=== PATIENT | female | born 1965 | race Caucasian/White ===

== ENCOUNTER → 2023-04-17 09:05 | Outpatient (REF) | payer BC, SELFPAY | LOC: WDC 09:05 | PROVIDERS: ATTENDING PHYSICIAN Surgery | DX: C50.412 Malignant neoplasm of upper-outer quadrant of left female breast (principal) | CPT/HCPCS: 19285; 38792; 76942; 77065; A4648; A9541 ==

== ENCOUNTER → 2023-04-18 07:56 | Outpatient (REF) | payer BC, SELFPAY | LOC: WDC 07:56 | PROVIDERS: ATTENDING PHYSICIAN Surgery | DX: C50.412 Malignant neoplasm of upper-outer quadrant of left female breast (principal) | CPT/HCPCS: 88305; 88307; 88332; 76098; 88331; 88342 ==

== ENCOUNTER → 2023-05-04 13:13 | Outpatient (REF) | payer BC, SELFPAY | LOC: WDC 13:13 | PROVIDERS: ATTENDING PHYSICIAN Surgery | DX: M79.89 Other specified soft tissue disorders (principal) | CPT/HCPCS: 76642 ==

== ENCOUNTER → 2023-05-11 09:18 | Outpatient (REF) | payer BC, SELFPAY | LOC: RCS 09:18 | PROVIDERS: ATTENDING PHYSICIAN Internal Medicine; FAMILY PHYSICIAN Family Medicine; REFERRING PHYSICIAN Internal Medicine Hematology & Oncology | DX: I42.8 Other cardiomyopathies (principal); Z17.1 Estrogen receptor negative status [ER-]; C50.912 Malignant neoplasm of unspecified site of left female breast | CPT/HCPCS: 93306; 93356 ==

== ENCOUNTER 2023-05-24 09:30 | Emergency (ER) | payer BC, SELFPAY ==
[2023-05-24] VITALS (7 sets, daily range): BP systolic 98–118; BP diastolic 53–62; PULSE 77–85; BMI 22.5
[2023-05-24 09:41] LABS: Glucose - Point of Care 137 mg/dl (70-99)
--- NOTE | 2023-05-24 09:52 | ED.GENMED ---
History of Present Illness
General
Chief Complaint: Fainting/Passed Out
Source: patient
Exam Limitations: none
Time Seen by Provider: 05/24/23 09:33
Nursing documentation reviewed up to this point in time: agreed with
Travel History
Have you had any contact with someone who has COVID-19?: No
Do you have any symptoms of coronavirus? Fever > 100 degrees, chills, cough, shortness of breath, sore throat, loss of taste or smell, muscle aches, or headache?: No
History of Present Illness
History of Present Illness:
pt is a 58 y/o F with h/o breast CA s/p completion of chemo and was due to start another regimen of maintenance chemo and radiation soon
cardiomopathy, h/o EF 30% but back up to 50% in apr
seizure in august, on keppra
here after witnessed syncope event just [employer]
pt ate breakfast, felt well; says she had a little sore throat and a cough when she woke up
and [facility] she [facility] have her first infusion for her maintenance chemo and after her port was accessed and her blood was drawn, she felt warm, nauseated, and lightheaded. told her she thought she was doug to pass
out and then eyes rolled back and she slumped, they leaned her back in her upright chair and pt had her fists clenched and was gently shaking
woke up shortly after without any confusion, no tongue biting and no incontinence
she did vomit after waking up
pt says she feels fine now
no cp, sob, headache, fever, leg swelling,
Past History
Past History
ED Past Medical History: Psychiatric, Other (Early differential) and Other (DVT of her uterus)
ED Past Surgical History: Other (Tubal)
Social History
Tobacco: Smoker
Alcohol: None
Drug: None
Personal:
Living: with family
Review of Systems
Review of Systems
Allergies reviewed?: Yes
All Other Systems: Not applicable
Phy Exam
Physical Exam
Physical Exam:
GENERAL: Alert , in no apparent distress, temp 99
EYE: pupils equal and reactive , pale
NECK: Supple
ENT: o/p clr, mmm.
CARDIAC: Regular rate and rhythm .no edema
chest wall: port upper right;
LUNGS: Clear breath sounds bilaterally, no acute respiratory distress, no wheezes/rales/rhonchi
ABDOMEN: Soft, without focal tenderness, no r/g, no cvat, normal bowel sounds
NEUROLOGICAL: Alert and oriented, no focal neuro deficits
SKIN: Warm and dry, skin intact. pale
MUSCULOSKELETAL: No edema, well perfused. neg sarah's sign
PSYCH: Normal and appropriate interaction.
Course
Orders/Labs/Results
Orders:
Orders
05/24/23 09:34
Electrocardiogram (*1) Urgent
Reason for Study: Chest Pain
Cardiac Monitoring- Treatment ONCE
EKG- Treatment ONCE
05/24/23 09:36
Accucheck Once [Bedside Glucose Monitoring-ONCE] As Directed
05/24/23 09:45
Type+Screen Urgent
Complete Blood Count/With Diff Urgent
Comprehensive Metabolic Panel Urgent
Troponin I Urgent
05/24/23 09:49
Orthostatic VS- Treatment ONCE
0.9% Sodium Chloride 500 ml [Nss] 500 ml IV BOLUS
CR Chest - 2 Views Urgent
Comment:
Reason For Exam: syncop, cough
05/24/23 09:59
COVID-19 Antigen Urgent
Source: Nasal Swab
Influenza A+B Rapid Molecular Urgent
ALBERTO Source: Nasal Swab
Specimen Description:
05/24/23 12:25
Heparin Pf [Heparin Lock Flush] 500 unit .ROUTE .[facility]
Abnormal Lab Results
0305/24/23 05/24/23
09:39 09:45 09:59
RBC 3.74 L 10^6/uL
(4.20-5.40)
Hgb 11.3 L g/dL
(12.0-16.0)
Hct 34.0 L %
(37.0-47.0)
Absolute Monos (auto) 0.8 H 10^3/uL
(0.1-0.6)
Monocytes % 13.8 H %
(1.7-9.3)
Glucose 145 H mg/dl
(70-99)
SARS-CoV-2 Antigen Positive A
(Negative)
POC Glucose 137 H mg/dl
(70-99)
05/24/23 09:45
05/24/23 09:45
Vital Signs
Initial and Last Documented VS:
Initial Vital Signs
Pulse Resp Pulse Ox
80 24 97
05/24/23 09:36 05/24/23 09:36 05/24/23 09:36
Last Documented Vital Signs
Temp Pulse Resp BP Pulse Ox
99.5 F 70 20 109/61 97
05/24/23 09:42 05/24/23 12:15 05/24/23 12:15 05/24/23 12:00 05/24/23 12:15
MDM/Problems Addressed
Differential Diagnosis Includes:
vasovagal syncope, fever, infection, pneumonia, dehydration
MDM/Problems Addressed:
58-year-old female with a history of breast cancer in remission but due to start an infusion therapy but she syncopized after her port was accessed
felt presyncopal symptoms nausea, warm, lightheaded
woke up without any confusion no post ictal stsate and then vomited
now feels better
slight cough this am
low grade temp
otherwise unremarkable exam
ekg nsr
pt has clear lungs on cxr
covid pos
likely the cause of her low grade temp,, nausea, cough today
she feels better after fluids
would like to go home
d/w e attending who agreed
*Critical Care Note
Total Time (30-74mins, 75-104mins- exclusive of procedures): Not Applicable
ED Attending Note
-
Portions of this chart may have been created with voice recognition software.� Occasional wrong word or��sound alike� substitutions may have occurred due to the inherent limitations of voice recognition software.
Discharge Plan
Departure
Patient Disposition: Home (Routine Discharge)
Date of Disposition: 05/24/23
Time of Disposition: 12:21
Patient with high blood pressure during this ER visit?: No
Covid-19: Confirmed COVID-19
Discharge Problem:
Syncope, vasovagal, COVID-19
Instructions: Syncope (Fainting) (DC), COVID-19 (DC)
Prescriptions:
No Action
carvedilol [Coreg] 12.5 mg Tablet
12.5 mg PO BID
spironolactone 25 mg Tablet
25 mg PO DAILY
amitriptyline 10 mg Tablet
10 mg PO HS PRN (Reason: insomnia)
Jardiance 10 mg Tablet
10 mg PO DAILY
Entresto 49-51 mg Tablet
1 tab PO BID
loperamide [Imodium] 2 mg Capsule
2 mg PO UD PRN (Reason: diarrhea)
Patient Comments:
03/15/2023, patient states that she is allowed to take up to 8 capsules a day as needed for diarrhea.
levetiracetam 500 mg Tablet
500 mg PO Q12H
acetaminophen [Tylenol Extra Strength] 500 mg Tablet
1,000 mg PO DAILYPRN PRN (Reason: chemo treatment)
pantoprazole 40 mg Tablet,Delayed Release (Dr/Ec)
40 mg PO DAILY
dextroamphetamine-amphetamine 20 mg Tablet
20 mg PO TID
Patient Comments:
03/15/2023, patient filled this medication on 02/19/2023 for 90 tablets according to PDMP.
fluticasone propionate 50 mcg/actuation [place],Suspension
1 spray INTRANASAL BID
omeprazole magnesium [Prilosec OTC] 20 mg Tablet,Delayed Release (Dr/Ec)
20 mg PO DAILY
magnesium 250 mg tablet
250 mg PO DAILY Qty: 20 0RF
Referrals:
Ricardo River MD [Family Provider] - Follow up in 5-7 days
Activity Restrictions/Additional Instructions:
YOU TESTED POSITIVE FOR COVID
YOU SOUND TO HAVE PASSED OUT WHICH WAS LIKEY VASOVAGAL AFTER YOUR PORT WAS ACCESSED OR BECAUSE YOU WERE NAUSEATED.
YOU CAN TRY TYLENOL FOR YOUR FEVER/SACHES
DRINK FLUIDS TOLERATED
REST
STAY HOME FOR 5 DAYS
RETURN FOR: REPEATED PASSING OUT, CHEST PAIN, SEVERE HEADACHE, HIGH FEVER NOT RESPONDING TL TYLENOL, SEVERE DEHYDRATION, CONFUSION OR ANY CONCENRS.
Interventions
Interventions:
*Risk Screen - Suicide Last Done: 05/24/23 09:49
*General Assessment Last Done: 05/24/23 09:49
*Neglect/Abuse Screening Last Done: 05/24/23 09:49
ED- Fall Risk Assessment Last Done: 05/24/23 09:49
*ED COVID-19 Vaccine History Last Done: 05/24/23 09:49
*Nursing Disposition Last Done: 05/24/23 12:55
ED- Cardiac Assessment Last Done: 05/24/23 10:16
ED- Neurological Assessment Last Done: 05/24/23 10:16
Discharge Date and Time
Discharge Date/Time: 05/24/23 12:55
[2023-05-24 10:02] LABS: % Basophils 0.7 % (0-2); % Eosinophils 3.8 % (0-6); % Immature Granulocytes 0.3 % (0-0.5); % Lymphocytes 22.4 % (20.5-51.1); % Monocytes 13.8 % (1.7-9.3); Absolute Eosinophils 0.2 10^3/uL (0-0.7); Absolute Lymphocytes 1.4 10^3/uL (1.2-3.4); Absolute Monocytes 0.8 10^3/uL (0.1-0.6); Absolute Neutrophils 3.6 10^3/uL (1.4-6.5); Hemoglobin 11.3 g/dL (12.0-16.0); Mean Corp Hgb Conc. 33.2 g/dL (33.0-37.0); Mean Corpuscular Hgb 30.2 pg (27.0-31.0); Mean Corpuscular Volume 90.9 fL (81.0-99.0); Mean Platelet Volume 9.4 fL (7.4-10.4); Nucleated Red Blood Cells % 0 %; Platelet Count 203 10^3/uL (130-400); Red Blood Cell Count 3.74 10^6/uL (4.20-5.40); Red Cell Dist. Width 13.6 % (11.5-14.5)
[2023-05-24] MEDS: NSS 500 IV (10:05)
[2023-05-24 10:13] LABS: ALT (SGPT) 17 U/L (0-35); AST (SGOT) 24 U/L (14-36); Albumin 3.6 g/dl (3.5-5.0); Alkaline Phosphatase 68 U/L (38-126); Blood Urea Nitrogen 14 mg/dl (7-17); Calcium 9.1 mg/dl (8.4-10.2); Carbon Dioxide 28 mmol/L (22-30); Chloride 100 mmol/L (98-107); Estimated Creatinine Clearance 102 ml/min; Glucose 145 mg/dl (70-99); Potassium 3.8 mmol/L (3.5-5.1); Sodium 137 mmol/L (135-145); Total Bilirubin 0.3 mg/dl (0.2-1.3); Total Protein 6.4 g/dl (6.3-8.2); eGFR > 60.00
[2023-05-24 10:18] LABS: COVID-19 Antigen Positive (Negative)
[2023-05-24 10:24] LABS: Troponin I < 0.012 ng/ml
--- NOTE | 2023-05-24 13:03 | EDRN ---
Port flushed w/ 10 mL of NSS and then w/ 500 units of heparin in 5mL. Pt is awaiting to have port de-accessed.
== END 2023-05-24 12:55 | disposition home or self-care (01) ==
LOC: EMR 09:30
PROVIDERS: Physician Assistant; EMERGENCY PHYSICIAN Emergency Medicine; FAMILY PHYSICIAN Family Medicine
DX: U07.1 COVID-19 (principal); R55 Syncope and collapse; F17.200 Nicotine dependence, unspecified, uncomplicated; Z85.3 Personal history of malignant neoplasm of breast; Z11.52 Encounter for screening for COVID-19
CPT/HCPCS: 99285; 96360; 71046; 80053; 82962; 84484; 85025; 86850; 86900; 86901; 87502; 87811; 93005

== ENCOUNTER → 2023-08-25 10:21 | Outpatient (REF) | payer BC, SELFPAY | LOC: RCS 10:21 | PROVIDERS: ATTENDING PHYSICIAN Internal Medicine; FAMILY PHYSICIAN Family Medicine; REFERRING PHYSICIAN Internal Medicine Hematology & Oncology | DX: I42.8 Other cardiomyopathies (principal); Z17.1 Estrogen receptor negative status [ER-]; C50.912 Malignant neoplasm of unspecified site of left female breast | CPT/HCPCS: 93306; 93356 ==

== ENCOUNTER → 2023-10-04 11:16 | Outpatient (REF) | payer BC, SELFPAY | LOC: HWRAD 11:16 | PROVIDERS: ATTENDING PHYSICIAN Internal Medicine Hematology & Oncology; FAMILY PHYSICIAN Family Medicine; REFERRING PHYSICIAN Surgery | DX: C50.912 Malignant neoplasm of unspecified site of left female breast (principal); Z12.31 Encounter for screening mammogram for malignant neoplasm of breast | CPT/HCPCS: 70496; 77063; 77067; Q9967 ==

== ENCOUNTER → 2023-11-14 09:34 | Outpatient (REF) | payer BC, SELFPAY | LOC: RCS 09:34 | PROVIDERS: ATTENDING PHYSICIAN Internal Medicine; FAMILY PHYSICIAN Family Medicine | DX: I42.8 Other cardiomyopathies (principal); Z17.1 Estrogen receptor negative status [ER-]; C50.912 Malignant neoplasm of unspecified site of left female breast | CPT/HCPCS: 93306; 93356 ==

== ENCOUNTER 2024-03-15 05:43 | Day surgery (SDC) | payer BC, SELFPAY ==
[2024-03-01 11:37] LABS: Hematocrit 41.3 % (37.0-47.0); Hemoglobin 13.7 g/dL (12.0-16.0); Mean Corp Hgb Conc. 33.2 g/dL (33.0-37.0); Mean Corpuscular Hgb 31.1 pg (27.0-31.0); Mean Corpuscular Volume 93.7 fL (81.0-99.0); Platelet Count 216 10^3/uL (130-400); Red Blood Cell Count 4.41 10^6/uL (4.20-5.40); Red Cell Dist. Width 12.6 % (11.5-14.5); White Blood Cell Count 8.4 10^3/uL (4.8-10.8)
[2024-03-01 12:07] LABS: ALT (SGPT) 16 U/L (0-35); AST (SGOT) 24 U/L (14-36); Albumin 4.6 g/dl (3.5-5.0); Alkaline Phosphatase 97 U/L (38-126); Blood Urea Nitrogen 16 mg/dl (7-17); Calcium 9.7 mg/dl (8.4-10.2); Carbon Dioxide 30 mmol/L (22-30); Chloride 96 mmol/L (98-107); Glucose 122 mg/dl (70-99); Potassium 4.8 mmol/L (3.5-5.1); Sodium 136 mmol/L (135-145); Total Bilirubin 0.5 mg/dl (0.2-1.3); Total Protein 7.4 g/dl (6.3-8.2); eGFR > 60.00
[2024-03-01 12:13] LABS: Prealbumin (Transthyretin) 25.3 mg/dl (17.6-36.0)
[2024-03-01 12:22] LABS: Vitamin D, 25-OH*** 15.1 ng/mL (30-80)
[2024-03-01 13:12] VITALS: BMI 22.7
[2024-03-15] VITALS (8 sets, daily range): BP systolic 85–127; BP diastolic 40–61; BMI 22.7
[2024-03-15] MEDS: LOVENOX 40 MG SC (07:09)
[2024-03-15] MEDS: TYLENOL 1000 MG PO (07:09)
[2024-03-15] MEDS: NORMOSOL-R/PLASMALYTE-A 1000 IV (07:21)
--- NOTE | 2024-03-15 08:13 | W.IMMPOSTOP ---
Surgical Immed Post Op Note
-
Primary Surgeon: Sujata
Assisting Surgeon: None
Pre-op Diagnosis: Left breast ca
Post-op Diagnosis: Same
Procedure Performed: Removal right port
Anesthesia Type: TIVA
Specimen / Cultures: None
Estimated Blood Loss: 2cc
Complications: None
Operative Findings: None
--- NOTE | 2024-03-15 08:14 | OR.RPT ---
Operative Report
Operative Report
Pre-op diagnosis: left breast carcinoma
postop diagnosis: left breast carcinoma
procedure: removal of right port
Surgeon: Sujata
anesthesia: TIVA
EBL: 2 cc
Complications: none
The patient is a 59-year-old female who had undergone surgery for left breast carcinoma and presents now for port removal after adjuvant chemotherapy treatment.
The patient presented to the same-day surgical unit where she verified site and procedure. DVT and antibiotic prophylaxis were provided. The patient was taken to the operating room and in the supine position. intravenous sedation was delivered.
The right upper chest and neck were prepped and draped in the usual sterile fashion. Appropriate timeout was performed. Tissues were anesthetized with 1% lidocaine plain and the previous insertion site was entered sharply with the blade.
Dissection was carried down to the port pocket using the cautery and the port extruded easily. Catheter tip was intact. The vascular tract was suture-ligated with 3-0 silk suture ligature. Hemostasis was maintained with the cautery and Marcaine
0.5% plain was instilled into all tissues. Wound was closed using simple and erupted 3-0 plain on subcutaneous tissue and running subcuticular 4-0 Monocryl on skin. Surgical glue and a sterile compressive dressing were applied. All sponge needle
and instrument counts were correct and the patient was transferred to the recovery room in stable condition.
([id number])
== END 2024-03-15 09:32 | disposition home or self-care (01) ==
LOC: SDS 05:43
PROVIDERS: ATTENDING PHYSICIAN Surgery; FAMILY PHYSICIAN Family Medicine
DX: C50.912 Malignant neoplasm of unspecified site of left female breast (principal); Z92.21 Personal history of antineoplastic chemotherapy; Z45.2 Encounter for adjustment and management of vascular access device
CPT/HCPCS: 36590; 36415; 80053; 82306; 84134; 85027

== ENCOUNTER → 2024-03-26 12:49 | Outpatient (REF) | payer BC, SELFPAY | LOC: RCS 12:49 | PROVIDERS: ATTENDING PHYSICIAN Internal Medicine; FAMILY PHYSICIAN Family Medicine; REFERRING PHYSICIAN Internal Medicine Cardiovascular Disease | DX: I42.8 Other cardiomyopathies (principal); Z17.1 Estrogen receptor negative status [ER-]; C50.912 Malignant neoplasm of unspecified site of left female breast | CPT/HCPCS: 93306; 93356 ==

== ENCOUNTER → 2024-04-30 13:47 | Outpatient (REF) | payer BC, SELFPAY | LOC: HWRAD 13:47 | PROVIDERS: ATTENDING PHYSICIAN Internal Medicine Critical Care Medicine; FAMILY PHYSICIAN Family Medicine; REFERRING PHYSICIAN Internal Medicine Hematology & Oncology | DX: R91.1 Solitary pulmonary nodule (principal) | CPT/HCPCS: 71250 ==

== ENCOUNTER 2024-05-13 06:20 | Day surgery (SDC) | payer BC, SELFPAY ==
[2024-05-09 13:56] LABS: APTT 27.3 Sec (23.4-35.0); INR 0.85; PT 12.1 Sec (11.4-14.6)
[2024-05-09 14:14] VITALS: BMI 23.3
--- NOTE | 2024-05-09 16:41 | PTCARENOTE ---
Dr Abreu made aware of abnormal EKG, no further action requested.
[2024-05-13 07:16] VITALS: BMI 23.4
[2024-05-13 07:17] VITALS: BP 131/71
[2024-05-13 07:18] LABS: Glucose - Point of Care 107 mg/dl (70-99)
[2024-05-13 09:48] VITALS: BP 123/55; BP 131/71
[2024-05-13 10:00] VITALS: BP 118/66
[2024-05-13 10:15] VITALS: BP 119/65
[2024-05-13 10:25] VITALS: BP 126/65
[2024-05-13 10:45] VITALS: BP 116/71
== END 2024-05-13 11:06 | disposition home or self-care (01) ==
LOC: SDS 06:20
PROVIDERS: ATTENDING PHYSICIAN Internal Medicine Critical Care Medicine; FAMILY PHYSICIAN Family Medicine
DX: J84.09 Other alveolar and parieto-alveolar conditions (principal); R91.1 Solitary pulmonary nodule; R94.2 Abnormal results of pulmonary function studies; R93.89 Abnormal findings on diagnostic imaging of other specified body structures; I47.10 Supraventricular tachycardia, unspecified; I50.33 Acute on chronic diastolic (congestive) heart failure; I11.0 Hypertensive heart disease with heart failure; R56.9 Unspecified convulsions; Z85.3 Personal history of malignant neoplasm of breast; Z87.891 Personal history of nicotine dependence
CPT/HCPCS: 31629; 31628; 31624; 31627; 31623; 31652; 31654; 88172; 88173; 88305; 36415; 71045; 76000; 82962; 85610; 85730; 87015; 87070; 87102; 87116; 87205; 88112; 88333; 94640; C1887

== ENCOUNTER → 2024-07-12 14:45 | Outpatient (REF) | payer BC, SELFPAY | LOC: RCS 14:45 | PROVIDERS: ATTENDING PHYSICIAN Internal Medicine; FAMILY PHYSICIAN Family Medicine | DX: I42.8 Other cardiomyopathies (principal); Z17.1 Estrogen receptor negative status [ER-]; C50.912 Malignant neoplasm of unspecified site of left female breast | CPT/HCPCS: 93306; 93356 ==

== ENCOUNTER → 2024-11-15 14:05 | Outpatient (REF) | payer BC, SELFPAY | LOC: RCS 14:05 | PROVIDERS: ATTENDING PHYSICIAN Internal Medicine; FAMILY PHYSICIAN Family Medicine; OTHER PHYSICIAN Internal Medicine Hematology & Oncology | DX: I42.8 Other cardiomyopathies (principal); C50.912 Malignant neoplasm of unspecified site of left female breast; Z17.1 Estrogen receptor negative status [ER-] | CPT/HCPCS: 93306; 93356 ==

== ENCOUNTER → 2025-01-21 14:05 | Outpatient (REF) | payer BC, SELFPAY | LOC: RCS 14:05 | PROVIDERS: ATTENDING PHYSICIAN Internal Medicine; FAMILY PHYSICIAN Family Medicine; OTHER PHYSICIAN Internal Medicine Hematology & Oncology | DX: I42.8 Other cardiomyopathies (principal); Z17.1 Estrogen receptor negative status [ER-]; C50.912 Malignant neoplasm of unspecified site of left female breast | CPT/HCPCS: 93306; 93356 ==